=== PATIENT | male | born 1955 | race Caucasian/White ===

== ENCOUNTER → 2017-11-14 | Outpatient (CLI) | payer OTHER ==
[~2017-11-14] MED LIST: ADVAIR DISKUS 21 DSK IH; ALBUTEROL0.09 MG/A2 IH; VICODIN 500 MG-1 TAB PO
== END | disposition home or self-care (01) ==
LOC: RAD 15:19
DX: J44.9 Chronic obstructive pulmonary disease, unspecified (principal); M54.89 Other dorsalgia

== ENCOUNTER → 2017-11-16 | Outpatient (CLI) | payer OTHER | END | disposition home or self-care (01) | LOC: CT 13:40 | DX: I71.4 Abdominal aortic aneurysm, without rupture (principal); R07.81 Pleurodynia ==

== ENCOUNTER → 2020-04-10 | Outpatient (CLI) | payer OTHER ==
[2020-04-10 08:42] LABS: BASO % 0.2 % (0.0-1.0); EOS # 0.1 10*3/uL (0.0-0.4); EOS % 2.7 % (1.0-4.0); HEMATOCRIT 45.8 % (42.0-52.0); LYMPH # 1.4 10*3/uL (1.3-4.4); LYMPH % 27.6 % (27.0-41.0); MEAN CELL VOLUME 95.4 fl (80.0-94.0); MEAN CORPUSCULAR HGB 30.6 pg (27.0-31.0); MEAN CORPUSCULAR HGB CONC 32.1 g/dl (33.0-37.0); MEAN PLATELET VOLUME 9.7 fl (9.6-12.3); MONO # 0.5 10*3/uL (0.1-1.0); MONO % 9.1 % (3.0-9.0); NEUT # 3.1 10*3/uL (2.3-7.9); NEUT % 60.2 % (47.0-73.0); PLATELET COUNT AUTOMATED 170 10*3/uL (130-400); RED CELL DISTRI WIDTH 12.9 % (0-14.5); WHITE BLOOD COUNT 5.2 10*3/uL (4.8-10.8)
[2020-04-10 09:32] LABS: ALBUMIN 3.8 gm/dl (3.1-4.5); BUN 23 mg/dl (7-24); CHLORIDE 109 mmol/L (98-107); CHOLESTEROL 157 mg/dL (<200); CREATININE 0.96 mg/dL (0.70-1.30); POTASSIUM 4.1 mmol/L (3.5-5.1); SGOT/AST 22 IU/L (3-35); SGPT/ALT 49 U/L (12-78); SODIUM 143 mmol/L (136-145); TRIGLYCERIDES 79 mg/dl (<150); VLDL CHOLESTEROL 16 mg/dL (6-40)
[2020-04-10 09:42] LABS: ALKALINE PHOSPHATASE 57 U/L (45-117); HDL CHOLESTEROL 38 mg/dl (40-60); LDL CHOLESTEROL 103 mg/dL (9-159); TOTAL PROTEIN 7.4 gm/dL (6.4-8.2)
== END | disposition home or self-care (01) ==
LOC: LAB 08:18
PROVIDERS: ATTEND Nurse Practitioner
DX: Z00.00 Encounter for general adult medical examination without abnormal findings (principal)

== ENCOUNTER 2020-06-06 15:57 | Emergency (ER) | payer OTHER ==
[~2020-06-06] VITALS: Ht 182.8 cm; Wt 86.2 kg
[2020-06-06 16:29] LABS: BILIRUBIN Negative (Negative); BLOOD Negative (Negative); COLOR Yellow (Yellow); GLUCOSE Negative (Negative); KETONE Negative (Negative); LEUKO ESTERASE Negative (Negative); NITRITE Negative (Negative); PH 5.5 (4.5-8.0)
[2020-06-06 16:33] LABS: CLARITY Clear (Clear)
[2020-06-06 16:38] LABS: URINE AMPHETAMINES < 1000 (1000ng/ml); URINE BARBITURATES < 200 (200ng/ml); URINE BENZODIAZEPINES < 200 (200ng/ml); URINE CANNABINOIDS (THC) < 50 (50ng/ml); URINE COCAINE < 300 (300ng/ml); URINE METHADONE < 300 (300ng/ml); URINE OPIATES < 300 (300ng/ml)
[2020-06-06 16:40] LABS: BASO % 0.2 % (0.0-1.0); EOS # 0.1 10*3/uL (0.0-0.4); EOS % 0.5 % (1.0-4.0); HEMATOCRIT 46.7 % (42.0-52.0); LYMPH # 0.9 10*3/uL (1.3-4.4); LYMPH % 8.1 % (27.0-41.0); MEAN CELL VOLUME 92.5 fl (80.0-94.0); MEAN CORPUSCULAR HGB 30.9 pg (27.0-31.0); MEAN CORPUSCULAR HGB CONC 33.4 g/dl (33.0-37.0); MEAN PLATELET VOLUME 9.3 fl (9.6-12.3); MONO # 0.7 10*3/uL (0.1-1.0); MONO % 6.7 % (3.0-9.0); NEUT # 9.2 10*3/uL (2.3-7.9); NEUT % 84.3 % (47.0-73.0); PLATELET COUNT AUTOMATED 201 10*3/uL (130-400); RED BLOOD COUNT 5.05 10*6/uL (4.50-5.90); RED CELL DISTRI WIDTH 13.1 % (0-14.5); WHITE BLOOD COUNT 10.9 10*3/uL (4.8-10.8)
[2020-06-06 16:44] LABS: URINE PHENCYCLIDINE < 25 (25ng/ml)
[2020-06-06 16:49] LABS: BACTERIA TRACE; EPITHELIAL CELLS 0-2; RBC 0-2 rbc/hpf (0-2); WBC 0-2 wbc/hpf (0-5)
[2020-06-06 16:56] LABS: ALBUMIN 3.8 gm/dl (3.1-4.5); ALKALINE PHOSPHATASE 62 U/L (45-117); BUN 17 mg/dl (7-24); CHLORIDE 109 mmol/L (98-107); CREATININE 1.06 mg/dL (0.70-1.30); POTASSIUM 3.8 mmol/L (3.5-5.1); SGOT/AST 20 IU/L (3-35); SGPT/ALT 39 U/L (12-78); SODIUM 142 mmol/L (136-145); TOTAL PROTEIN 7.2 gm/dL (6.4-8.2)
[2020-06-06 17:06] LABS: ETHYL ALCOHOL < 3.0 mg/dl (<3)
== END 2020-06-06 19:08 | disposition home or self-care (01) ==
LOC: ED 15:57
PROVIDERS: Emergency Medicine
DX: F19.90 Other psychoactive substance use, unspecified, uncomplicated (principal); T43.205A Adverse effect of unspecified antidepressants, initial encounter; Y92.89 Other specified places as the place of occurrence of the external cause

== ENCOUNTER 2020-06-08 14:14 | Inpatient (IN) | payer OTHER ==
[~2020-06-08] VITALS: Ht 180.3 cm; Wt 117.9 kg
[2020-06-08 14:21] VITALS: BP 175/80
[2020-06-08 14:42] LABS: BASO % 0.1 % (0.0-1.0); EOS # 0.1 10*3/uL (0.0-0.4); EOS % 0.6 % (1.0-4.0); LYMPH # 1.5 10*3/uL (1.3-4.4); LYMPH % 17.9 % (27.0-41.0); MEAN CELL VOLUME 91.3 fl (80.0-94.0); MEAN CORPUSCULAR HGB 30.5 pg (27.0-31.0); MEAN CORPUSCULAR HGB CONC 33.4 g/dl (33.0-37.0); MEAN PLATELET VOLUME 9.1 fl (9.6-12.3); MONO # 0.6 10*3/uL (0.1-1.0); MONO % 7.4 % (3.0-9.0); NEUT % 73.6 % (47.0-73.0); PLATELET COUNT AUTOMATED 193 10*3/uL (130-400); RED BLOOD COUNT 5.15 10*6/uL (4.50-5.90); RED CELL DISTRI WIDTH 12.7 % (0-14.5); WHITE BLOOD COUNT 8.2 10*3/uL (4.8-10.8)
[2020-06-08 14:58] LABS: ALBUMIN 3.8 gm/dl (3.1-4.5); ALKALINE PHOSPHATASE 55 U/L (45-117); BUN 11 mg/dl (7-24); CHLORIDE 109 mmol/L (98-107); CPK 111 U/L (39-308); CREATININE 0.85 mg/dL (0.70-1.30); ETHYL ALCOHOL < 3.0 mg/dl (<3); SGOT/AST 20 IU/L (3-35); SGPT/ALT 36 U/L (12-78); SODIUM 140 mmol/L (136-145); TOTAL PROTEIN 7.6 gm/dL (6.4-8.2)
[2020-06-08 15:08] LABS: ACT PARTIAL THROMBO TIME 27.6 SECONDS (20.0-32.1)
[2020-06-08 15:22] LABS: TROPONIN I < 0.015 ng/ml (<0.045)
[2020-06-08 15:42] LABS: BILIRUBIN Negative (Negative); BLOOD Negative (Negative); CLARITY Clear (Clear); COLOR Yellow (Yellow); GLUCOSE Negative (Negative); KETONE Negative (Negative); LEUKO ESTERASE Negative (Negative); NITRITE Negative (Negative); PH 5.5 (4.5-8.0); UROBILINOGEN 0.2 E.U./dl (0.0-1.0)
[2020-06-08 15:52] LABS: URINE AMPHETAMINES < 1000 (1000ng/ml); URINE BARBITURATES < 200 (200ng/ml); URINE BENZODIAZEPINES < 200 (200ng/ml); URINE CANNABINOIDS (THC) < 50 (50ng/ml); URINE COCAINE < 300 (300ng/ml); URINE METHADONE < 300 (300ng/ml); URINE OPIATES < 300 (300ng/ml)
[2020-06-08 15:59] LABS: URINE PHENCYCLIDINE < 25 (25ng/ml)
[2020-06-08 16:03] LABS: WBC 0-2 wbc/hpf (0-5)
[2020-06-08] MEDS ORDERED: METHOCARBAMOL500 M1 PO (18:18)
[2020-06-08] MEDS ORDERED: SERTRALINE HYDR50 MG PO (18:18)
[2020-06-08] MEDS ORDERED: GOOD SENSE ALLE10 M2 PO (18:19)
[2020-06-08] MEDS ORDERED: METHYLPRED-DP4 MG PO (18:19)
[2020-06-08 18:21] VITALS: BP 121/82
[2020-06-08 19:01] VITALS: BP 141/90
[2020-06-08] MEDS ORDERED: Meclizine25 MG PO (19:15)
[2020-06-08 19:16] VITALS: BP 141/90
[2020-06-08] MEDS ORDERED: SYMB80 INH (19:16)
[2020-06-08 20:00] VITALS: BP 141/90
[2020-06-09 06:32] LABS: BASO % 0.2 % (0.0-1.0); EOS # 0.1 10*3/uL (0.0-0.4); EOS % 0.8 % (1.0-4.0); HEMATOCRIT 45.3 % (42.0-52.0); LYMPH # 1.7 10*3/uL (1.3-4.4); LYMPH % 25.3 % (27.0-41.0); MEAN CELL VOLUME 94.2 fl (80.0-94.0); MEAN CORPUSCULAR HGB CONC 32.9 g/dl (33.0-37.0); MEAN PLATELET VOLUME 9.7 fl (9.6-12.3); MONO # 0.5 10*3/uL (0.1-1.0); MONO % 6.8 % (3.0-9.0); NEUT # 4.4 10*3/uL (2.3-7.9); NEUT % 66.6 % (47.0-73.0); PLATELET COUNT AUTOMATED 162 10*3/uL (130-400); RED BLOOD COUNT 4.81 10*6/uL (4.50-5.90); RED CELL DISTRI WIDTH 13.2 % (0-14.5); WHITE BLOOD COUNT 6.6 10*3/uL (4.8-10.8)
[2020-06-09 06:46] LABS: ALBUMIN 3.4 gm/dl (3.1-4.5); BUN 12 mg/dl (7-24); CHLORIDE 110 mmol/L (98-107); POTASSIUM 4.3 mmol/L (3.5-5.1); SODIUM 142 mmol/L (136-145)
[2020-06-09 06:58] LABS: ALKALINE PHOSPHATASE 47 U/L (45-117); CHOLESTEROL 156 mg/dL (<200); CREATININE 0.91 mg/dL (0.70-1.30); HDL CHOLESTEROL 46 mg/dl (40-60); LDL CHOLESTEROL 97 mg/dL (9-159); SGOT/AST 15 IU/L (3-35); SGPT/ALT 31 U/L (12-78); TRIGLYCERIDES 63 mg/dl (<150); VLDL CHOLESTEROL 13 mg/dL (6-40)
[2020-06-09 07:46] VITALS: BP 131/77
[2020-06-09 08:39] LABS: VITAMIN D, 25-HYDROXY 43.5 ng/mL (30-100)
[2020-06-09 19:37] VITALS: BP 149/83
[2020-06-10 08:00] VITALS: BP 143/84
[2020-06-10 19:31] VITALS: BP 126/66
[2020-06-11 07:42] VITALS: BP 141/82
[2020-06-11 19:05] VITALS: BP 151/68
[2020-06-12 07:28] VITALS: BP 128/73
[2020-06-12 19:55] VITALS: BP 123/72
[2020-06-13 07:58] VITALS: BP 113/73
[2020-06-13 19:53] VITALS: BP 147/82
[2020-06-14 06:54] LABS: BASO % 0.2 % (0.0-1.0); EOS # 0.2 10*3/uL (0.0-0.4); EOS % 3.9 % (1.0-4.0); HEMATOCRIT 43.1 % (42.0-52.0); LYMPH # 1.2 10*3/uL (1.3-4.4); LYMPH % 25.3 % (27.0-41.0); MEAN CORPUSCULAR HGB 30.5 pg (27.0-31.0); MEAN CORPUSCULAR HGB CONC 31.8 g/dl (33.0-37.0); MEAN PLATELET VOLUME 9.9 fl (9.6-12.3); MONO # 0.5 10*3/uL (0.1-1.0); MONO % 9.3 % (3.0-9.0); NEUT # 2.9 10*3/uL (2.3-7.9); NEUT % 60.9 % (47.0-73.0); PLATELET COUNT AUTOMATED 127 10*3/uL (130-400); RED BLOOD COUNT 4.49 10*6/uL (4.50-5.90); RED CELL DISTRI WIDTH 13.2 % (0-14.5); WHITE BLOOD COUNT 4.8 10*3/uL (4.8-10.8)
[2020-06-14 07:21] LABS: ALBUMIN 3.2 gm/dl (3.1-4.5); ALKALINE PHOSPHATASE 42 U/L (45-117); BUN 14 mg/dl (7-24); CHLORIDE 112 mmol/L (98-107); CREATININE 0.87 mg/dL (0.70-1.30); POTASSIUM 4.4 mmol/L (3.5-5.1); SGOT/AST 15 IU/L (3-35); SGPT/ALT 38 U/L (12-78); SODIUM 144 mmol/L (136-145); TOTAL PROTEIN 6.4 gm/dL (6.4-8.2)
[2020-06-14 07:36] VITALS: BP 127/73
[2020-06-14 19:46] VITALS: BP 138/78
[2020-06-15 07:25] VITALS: BP 134/88
[2020-06-15] MEDS ORDERED: RISPERIDONE M-TA1 MG BC ×2 (10:01)
[2020-06-15] MEDS ORDERED: DIVALPROEX SOD500 MG PO (10:01)
[2020-06-15] MEDS ORDERED: LACTULOSE20 GM/30 M PO ×2 (10:01→11:37)
== END 2020-06-15 13:00 | disposition home or self-care (01) | DRG 885 ==
LOC: ED 14:14 → 3N 18:28
PROVIDERS: Emergency Medicine; Family Medicine; ADMIT Psychiatry & Neurology Psychiatry; ATTEND Psychiatry & Neurology Psychiatry
PROC: 0HBRXZZ Excision of Toe Nail, External Approach (ICD-10-PCS; principal; 2020-06-09)
PROC: 0HBRXZZ Excision of Toe Nail, External Approach (ICD-10-PCS; 2020-06-09)
PROC: 0HBRXZZ Excision of Toe Nail, External Approach (ICD-10-PCS; 2020-06-09)
PROC: 0HBRXZZ Excision of Toe Nail, External Approach (ICD-10-PCS; 2020-06-09)
PROC: 0HBRXZZ Excision of Toe Nail, External Approach (ICD-10-PCS; 2020-06-09)
PROC: 0HBRXZZ Excision of Toe Nail, External Approach (ICD-10-PCS; 2020-06-09)
PROC: 0HBRXZZ Excision of Toe Nail, External Approach (ICD-10-PCS; 2020-06-09)
PROC: 0HBRXZZ Excision of Toe Nail, External Approach (ICD-10-PCS; 2020-06-09)
PROC: 0HBRXZZ Excision of Toe Nail, External Approach (ICD-10-PCS; 2020-06-09)
PROC: 0HBRXZZ Excision of Toe Nail, External Approach (ICD-10-PCS; 2020-06-09)
DX: F23 Brief psychotic disorder (principal); F31.2 Bipolar disorder, current episode manic severe with psychotic features; E87.8 Other disorders of electrolyte and fluid balance, not elsewhere classified; R73.9 Hyperglycemia, unspecified; B35.1 Tinea unguium; Z20.828 Contact with and (suspected) exposure to other viral communicable diseases; Z68.36 Body mass index [BMI] 36.0-36.9, adult; E66.9 Obesity, unspecified

== ENCOUNTER → 2020-07-21 | Outpatient (CLI) | payer OTHER ==
[~2020-07-21] MED LIST changes: +DIVALPROEX SOD500 MG PO; +GOOD SENSE ALLE10 M2 PO; +LACTULOSE20 GM/30 M PO; +METHOCARBAMOL500 M1 PO; +METHYLPRED-DP4 MG PO; +Meclizine25 MG PO; +RISPERIDONE M-TA1 MG BC; +SERTRALINE HYDR50 MG PO; +SYMB80 INH
== END | disposition home or self-care (01) ==
LOC: LAB 14:53
PROVIDERS: ATTEND Physician Assistant
DX: Z51.81 Encounter for therapeutic drug level monitoring (principal); Z79.899 Other long term (current) drug therapy

== ENCOUNTER 2020-11-26 13:25 | Emergency (ER) | payer OTHER ==
[~2020-11-26] VITALS: Ht 180.3 cm; Wt 117.9 kg
[2020-11-26 13:51] LABS: BASO % 0.3 % (0.0-1.0); EOS # 0.3 10*3/uL (0.0-0.4); EOS % 4.2 % (1.0-4.0); HEMATOCRIT 43.7 % (42.0-52.0); LYMPH # 1.9 10*3/uL (1.3-4.4); LYMPH % 29.2 % (27.0-41.0); MEAN CELL VOLUME 91.2 fl (80.0-94.0); MEAN CORPUSCULAR HGB 30.5 pg (27.0-31.0); MEAN CORPUSCULAR HGB CONC 33.4 g/dl (33.0-37.0); MEAN PLATELET VOLUME 9.6 fl (9.6-12.3); MONO # 0.5 10*3/uL (0.1-1.0); MONO % 7.9 % (3.0-9.0); NEUT # 3.7 10*3/uL (2.3-7.9); NEUT % 58.1 % (47.0-73.0); PLATELET COUNT AUTOMATED 189 10*3/uL (130-400); RED BLOOD COUNT 4.79 10*6/uL (4.50-5.90); RED CELL DISTRI WIDTH 12.5 % (0-14.5); WHITE BLOOD COUNT 6.4 10*3/uL (4.8-10.8)
[2020-11-26 14:01] LABS: ACT PARTIAL THROMBO TIME 26.1 SECONDS (20.0-32.1)
[2020-11-26 14:10] LABS: ALBUMIN 3.5 gm/dl (3.1-4.5); ALKALINE PHOSPHATASE 72 U/L (45-117); BUN 18 mg/dl (7-24); CHLORIDE 104 mmol/L (98-107); CREATININE 1.42 mg/dL (0.70-1.30); POTASSIUM 3.8 mmol/L (3.5-5.1); SGOT/AST 26 IU/L (3-35); SGPT/ALT 59 U/L (12-78); SODIUM 137 mmol/L (136-145)
[2020-11-26 14:13] LABS: TROPONIN I < 0.015 ng/ml (<0.045)
== END 2020-11-26 14:49 | disposition left against medical advice (07) ==
LOC: ED 13:25
PROVIDERS: Emergency Medicine
DX: R07.9 Chest pain, unspecified (principal); Z79.899 Other long term (current) drug therapy; Z98.890 Other specified postprocedural states

== ENCOUNTER 2021-06-17 09:40 | Emergency (ER) | payer OTHER ==
[~2021-06-17] VITALS: Wt 131.5 kg
[2021-06-17 10:36] LABS: BASO % 0.4 % (0.0-1.0); EOS # 0.1 10*3/uL (0.0-0.4); EOS % 2.3 % (1.0-4.0); HEMATOCRIT 42.4 % (42.0-52.0); LYMPH # 1.3 10*3/uL (1.3-4.4); LYMPH % 24.5 % (27.0-41.0); MEAN CELL VOLUME 93.6 fl (80.0-94.0); MEAN CORPUSCULAR HGB 31.6 pg (27.0-31.0); MEAN CORPUSCULAR HGB CONC 33.7 g/dl (33.0-37.0); MEAN PLATELET VOLUME 9.6 fl (9.6-12.3); MONO # 0.4 10*3/uL (0.1-1.0); MONO % 7.4 % (3.0-9.0); NEUT # 3.4 10*3/uL (2.3-7.9); NEUT % 64.8 % (47.0-73.0); PLATELET COUNT AUTOMATED 151 10*3/uL (130-400); RED BLOOD COUNT 4.53 10*6/uL (4.50-5.90); RED CELL DISTRI WIDTH 13.2 % (0-14.5); WHITE BLOOD COUNT 5.3 10*3/uL (4.8-10.8)
[2021-06-17 10:48] LABS: ACT PARTIAL THROMBO TIME 26.5 SECONDS (20.0-32.1)
[2021-06-17 10:53] LABS: ALBUMIN 3.2 gm/dl (3.1-4.5); ALKALINE PHOSPHATASE 70 U/L (45-117); BUN 19 mg/dl (7-24); CHLORIDE 108 mmol/L (98-107); CREATININE 0.92 mg/dL (0.70-1.30); SGOT/AST 27 IU/L (3-35); SGPT/ALT 64 U/L (12-78); SODIUM 140 mmol/L (136-145); TOTAL PROTEIN 6.6 gm/dL (6.4-8.2)
[2021-06-17 10:59] LABS: TROPONIN I < 0.015 ng/ml (<0.045)
== END 2021-06-17 14:40 | disposition home or self-care (01) ==
LOC: ED 09:40
PROVIDERS: Internal Medicine
DX: F41.9 Anxiety disorder, unspecified (principal); Z79.899 Other long term (current) drug therapy

== ENCOUNTER 2021-07-29 01:32 | Emergency (ER) | payer OTHER | END 2021-07-29 02:29 | disposition left against medical advice (07) | LOC: ED 01:32 | DX: F41.9 Anxiety disorder, unspecified (principal); Z53.21 Procedure and treatment not carried out due to patient leaving prior to being seen by health care provider ==

== ENCOUNTER 2021-07-29 11:52 | Inpatient (IN) | payer OTHER ==
[~2021-07-29] VITALS: Ht 175.2 cm; Wt 136.2 kg
[2021-07-29 13:11] VITALS: BP 167/98
[2021-07-29 20:00] VITALS: BP 149/88
[2021-07-29 21:49] LABS: BILIRUBIN Negative (Negative); BLOOD Negative (Negative); CLARITY Clear (Clear); COLOR Yellow (Yellow); GLUCOSE Negative (Negative); KETONE Negative (Negative); LEUKO ESTERASE Negative (Negative); NITRITE Negative (Negative)
[2021-07-29 21:59] LABS: EPITHELIAL CELLS 0-2; WBC 0-2 wbc/hpf (0-5)
[2021-07-30 07:44] VITALS: BP 146/82
[2021-07-30 07:50] LABS: BASO % 0.3 % (0.0-1.0); EOS # 0.2 10*3/uL (0.0-0.4); EOS % 3.5 % (1.0-4.0); HEMATOCRIT 43.4 % (42.0-52.0); LYMPH # 1.6 10*3/uL (1.3-4.4); LYMPH % 25.3 % (27.0-41.0); MEAN CELL VOLUME 95.4 fl (80.0-94.0); MEAN CORPUSCULAR HGB 31.4 pg (27.0-31.0); MEAN CORPUSCULAR HGB CONC 32.9 g/dl (33.0-37.0); MEAN PLATELET VOLUME 9.9 fl (9.6-12.3); MONO # 0.6 10*3/uL (0.1-1.0); MONO % 10.3 % (3.0-9.0); NEUT # 3.7 10*3/uL (2.3-7.9); NEUT % 60.3 % (47.0-73.0); PLATELET COUNT AUTOMATED 189 10*3/uL (130-400); RED BLOOD COUNT 4.55 10*6/uL (4.50-5.90); RED CELL DISTRI WIDTH 13.3 % (0-14.5); WHITE BLOOD COUNT 6.2 10*3/uL (4.8-10.8)
[2021-07-30 08:06] LABS: ALBUMIN 3.4 gm/dl (3.1-4.5); ALKALINE PHOSPHATASE 56 U/L (45-117); BUN 15 mg/dl (7-24); CHLORIDE 106 mmol/L (98-107); CREATININE 0.92 mg/dL (0.70-1.30); POTASSIUM 4.2 mmol/L (3.5-5.1); SGOT/AST 27 IU/L (3-35); SGPT/ALT 60 U/L (12-78); SODIUM 139 mmol/L (136-145); TOTAL PROTEIN 6.9 gm/dL (6.4-8.2)
[2021-07-30 10:50] LABS: VITAMIN D, 25-HYDROXY 17.9 ng/mL (30-100)
[2021-07-30 20:00] VITALS: BP 134/56
[2021-07-31] MEDS ORDERED: TOBRADEX 0.3-03.5 GM OPH (04:31)
[2021-07-31 07:25] VITALS: BP 136/80
[2021-07-31 20:00] VITALS: BP 149/77
[2021-08-01 07:37] VITALS: BP 154/85
[2021-08-01 20:00] VITALS: BP 152/82
[2021-08-02 08:11] VITALS: BP 172/73
[2021-08-02] MEDS ORDERED: DIVALPROEX SOD500 MG PO (10:14)
[2021-08-02] MEDS ORDERED: PALIPERIDONE ER3 MG PO (10:14)
[2021-08-02] MEDS ORDERED: VITAMIN D3125 MC1 PO (10:14)
[2021-08-02] MEDS ORDERED: LISINOPRIL10 M1 PO (10:48)
== END 2021-08-02 11:47 | disposition home or self-care (01) | DRG 885 ==
LOC: 3N 11:52
PROVIDERS: ADMIT Psychiatry & Neurology Psychiatry; ATTEND Psychiatry & Neurology Psychiatry
DX: F31.2 Bipolar disorder, current episode manic severe with psychotic features (principal); Z68.41 Body mass index [BMI] 40.0-44.9, adult; F23 Brief psychotic disorder; J45.909 Unspecified asthma, uncomplicated; J44.9 Chronic obstructive pulmonary disease, unspecified; Z20.822 Contact with and (suspected) exposure to COVID-19; I10 Essential (primary) hypertension; E66.9 Obesity, unspecified; F41.9 Anxiety disorder, unspecified; H10.9 Unspecified conjunctivitis

== ENCOUNTER 2021-11-08 09:06 | Emergency (ER) | payer OTHER ==
[~2021-11-08] VITALS: Ht 180.3 cm; Wt 136.1 kg
[~2021-11-08 09:06] MED LIST changes: +LISINOPRIL10 M1 PO; +PALIPERIDONE ER3 MG PO; +TOBRADEX 0.3-03.5 GM OPH; +VITAMIN D3125 MC1 PO
[2021-11-08] MEDS ORDERED: LISINOPRIL20 MG PO (09:24)
[2021-11-08] MEDS ORDERED: DEPAKOTE500 MG PO (10:41)
== END 2021-11-08 12:10 | disposition home or self-care (01) ==
LOC: ED 09:06
DX: M54.2 Cervicalgia (principal); Z79.899 Other long term (current) drug therapy; Z98.890 Other specified postprocedural states; W01.198A Fall on same level from slipping, tripping and stumbling with subsequent striking against other object, initial encounter; Y93.89 Activity, other specified; Y92.89 Other specified places as the place of occurrence of the external cause; Y99.8 Other external cause status

== ENCOUNTER → 2021-11-16 | Outpatient (CLI) | payer OTHER ==
[~2021-11-16] MED LIST changes: +DEPAKOTE500 MG PO; +LISINOPRIL20 MG PO
== END | disposition home or self-care (01) ==
LOC: RESCLI 00:33
PROVIDERS: ATTEND Internal Medicine
DX: F31.9 Bipolar disorder, unspecified (principal); J44.9 Chronic obstructive pulmonary disease, unspecified; I10 Essential (primary) hypertension; E55.9 Vitamin D deficiency, unspecified; Z12.11 Encounter for screening for malignant neoplasm of colon; Z79.899 Other long term (current) drug therapy

== ENCOUNTER → 2021-12-21 | Outpatient (CLI) | payer OTHER | END | disposition home or self-care (01) | LOC: RESCLI 00:16 | PROVIDERS: ATTEND Internal Medicine | DX: G25.2 Other specified forms of tremor (principal); E55.9 Vitamin D deficiency, unspecified; I10 Essential (primary) hypertension; J44.9 Chronic obstructive pulmonary disease, unspecified; Z79.899 Other long term (current) drug therapy ==

== ENCOUNTER → 2022-01-18 | Outpatient (CLI) | payer OTHER | END | disposition home or self-care (01) | LOC: RESCLI 01-17 04:57 | PROVIDERS: ATTEND Internal Medicine | DX: G25.0 Essential tremor (principal); E55.9 Vitamin D deficiency, unspecified; J44.9 Chronic obstructive pulmonary disease, unspecified; F31.9 Bipolar disorder, unspecified; I10 Essential (primary) hypertension; Z79.899 Other long term (current) drug therapy ==

== ENCOUNTER → 2022-02-01 | Outpatient (CLI) | payer OTHER | END | disposition home or self-care (01) | LOC: RESCLI 01:23 | PROVIDERS: ATTEND Internal Medicine | DX: F31.9 Bipolar disorder, unspecified (principal); J44.9 Chronic obstructive pulmonary disease, unspecified; I10 Essential (primary) hypertension; E55.9 Vitamin D deficiency, unspecified; G25.0 Essential tremor; Z79.899 Other long term (current) drug therapy ==

== ENCOUNTER → 2022-03-14 | Outpatient (CLI) | payer OTHER | END | disposition home or self-care (01) | LOC: RESCLI 03:28 | PROVIDERS: ATTEND Internal Medicine | DX: F31.9 Bipolar disorder, unspecified (principal); J44.9 Chronic obstructive pulmonary disease, unspecified; I10 Essential (primary) hypertension; E55.9 Vitamin D deficiency, unspecified; G25.0 Essential tremor; M47.817 Spondylosis without myelopathy or radiculopathy, lumbosacral region; N40.0 Benign prostatic hyperplasia without lower urinary tract symptoms; M54.9 Dorsalgia, unspecified; M25.551 Pain in right hip; Z12.11 Encounter for screening for malignant neoplasm of colon; Z79.899 Other long term (current) drug therapy; Z12.5 Encounter for screening for malignant neoplasm of prostate ==

== ENCOUNTER → 2022-06-20 | Outpatient (CLI) | payer OTHER | END | disposition home or self-care (01) | LOC: RESCLI 03:55 | PROVIDERS: ATTEND Internal Medicine | DX: J44.9 Chronic obstructive pulmonary disease, unspecified (principal); I10 Essential (primary) hypertension; N40.0 Benign prostatic hyperplasia without lower urinary tract symptoms; F31.9 Bipolar disorder, unspecified; G25.2 Other specified forms of tremor; E55.9 Vitamin D deficiency, unspecified; Z98.890 Other specified postprocedural states; Z72.89 Other problems related to lifestyle; Z79.899 Other long term (current) drug therapy ==

== ENCOUNTER → 2022-07-15 | Outpatient (CLI) | payer OTHER ==
[2022-07-15 08:13] LABS: BASO % 0.3 % (0.0-1.0); EOS # 0.2 10*3/uL (0.0-0.4); EOS % 3.8 % (1.0-4.0); HEMATOCRIT 45.2 % (42.0-52.0); LYMPH # 1.5 10*3/uL (1.3-4.4); MEAN CELL VOLUME 94.4 fl (80.0-94.0); MEAN CORPUSCULAR HGB 31.1 pg (27.0-31.0); MEAN PLATELET VOLUME 9.5 fl (9.6-12.3); MONO # 0.5 10*3/uL (0.1-1.0); MONO % 8.3 % (3.0-9.0); NEUT # 3.6 10*3/uL (2.3-7.9); NEUT % 62.3 % (47.0-73.0); PLATELET COUNT AUTOMATED 175 10*3/uL (130-400); RED BLOOD COUNT 4.79 10*6/uL (4.50-5.90); RED CELL DISTRI WIDTH 12.9 % (0-14.5); WHITE BLOOD COUNT 5.8 10*3/uL (4.8-10.8)
[2022-07-15 10:07] LABS: ALKALINE PHOSPHATASE 70 U/L (46-116); BUN 14 mg/dl (9-23); CHLORIDE 101 mmol/L (98-107); CREATININE 0.91 mg/dL (0.70-1.30); POTASSIUM 4.4 mmol/L (3.4-5.1); SGPT/ALT 74 U/L (10-49); SODIUM 137 mmol/L (136-145); TRIGLYCERIDES 93 mg/dl (<150)
[2022-07-15 10:08] LABS: CHOLESTEROL 186 mg/dL (<200); LDL CHOLESTEROL 126 mg/dL (9-159); TOTAL PROTEIN 6.9 gm/dL (6.0-8.0)
== END | disposition home or self-care (01) ==
LOC: LAB 07:52 → COVID19 09:00
PROVIDERS: Student in an Organized Health Care Education/Training Program; ATTEND Internal Medicine Gastroenterology
DX: E55.9 Vitamin D deficiency, unspecified (principal); Z00.00 Encounter for general adult medical examination without abnormal findings; Z79.899 Other long term (current) drug therapy; Z20.822 Contact with and (suspected) exposure to COVID-19

== ENCOUNTER → 2022-07-19 | Outpatient (CLI) | payer OTHER | END | disposition home or self-care (01) | LOC: RESCLI 03:37 | PROVIDERS: ATTEND Internal Medicine | DX: I10 Essential (primary) hypertension (principal); J44.9 Chronic obstructive pulmonary disease, unspecified; E55.9 Vitamin D deficiency, unspecified; N40.0 Benign prostatic hyperplasia without lower urinary tract symptoms; M54.9 Dorsalgia, unspecified; M25.551 Pain in right hip; J45.909 Unspecified asthma, uncomplicated; E66.9 Obesity, unspecified; G25.0 Essential tremor; Z12.31 Encounter for screening mammogram for malignant neoplasm of breast; Z98.890 Other specified postprocedural states; Z87.891 Personal history of nicotine dependence; Z72.89 Other problems related to lifestyle; Z79.899 Other long term (current) drug therapy ==

== ENCOUNTER → 2022-10-17 | Outpatient (CLI) | payer OTHER | END | disposition home or self-care (01) | LOC: RESCLI 02:21 | PROVIDERS: ATTEND Internal Medicine | DX: J44.9 Chronic obstructive pulmonary disease, unspecified (principal); N40.0 Benign prostatic hyperplasia without lower urinary tract symptoms; K21.9 Gastro-esophageal reflux disease without esophagitis; F10.90 Alcohol use, unspecified, uncomplicated; E55.9 Vitamin D deficiency, unspecified; I10 Essential (primary) hypertension; M54.9 Dorsalgia, unspecified; Z98.890 Other specified postprocedural states; Z79.899 Other long term (current) drug therapy ==

== ENCOUNTER → 2023-03-23 | Outpatient (CLI) | payer OTHER | END | disposition home or self-care (01) | LOC: RESCLI 08:40 | PROVIDERS: ATTEND Internal Medicine | DX: E55.9 Vitamin D deficiency, unspecified (principal); K21.9 Gastro-esophageal reflux disease without esophagitis; J44.9 Chronic obstructive pulmonary disease, unspecified; N40.0 Benign prostatic hyperplasia without lower urinary tract symptoms; I10 Essential (primary) hypertension; R55 Syncope and collapse; I87.2 Venous insufficiency (chronic) (peripheral); K42.9 Umbilical hernia without obstruction or gangrene; F31.9 Bipolar disorder, unspecified; R73.09 Other abnormal glucose; Z98.890 Other specified postprocedural states; Z79.899 Other long term (current) drug therapy ==

== ENCOUNTER → 2023-03-28 | Outpatient (CLI) | payer MEDICARE ==
[2023-03-28 09:45] LABS: BASO % 0.2 % (0.0-1.0); EOS # 0.2 10*3/uL (0.0-0.4); HEMATOCRIT 47.7 % (42.0-52.0); LYMPH # 1.2 10*3/uL (1.3-4.4); LYMPH % 23.6 % (27.0-41.0); MEAN CELL VOLUME 94.5 fl (80.0-94.0); MEAN CORPUSCULAR HGB 30.9 pg (27.0-31.0); MEAN CORPUSCULAR HGB CONC 32.7 g/dl (33.0-37.0); MEAN PLATELET VOLUME 9.4 fl (9.6-12.3); MONO # 0.3 10*3/uL (0.1-1.0); MONO % 6.9 % (3.0-9.0); NEUT # 3.3 10*3/uL (2.3-7.9); NEUT % 65.9 % (47.0-73.0); PLATELET COUNT AUTOMATED 151 10*3/uL (130-400); RED BLOOD COUNT 5.05 10*6/uL (4.50-5.90); RED CELL DISTRI WIDTH 13.2 % (0-14.5)
[2023-03-28 10:11] LABS: ALKALINE PHOSPHATASE 71 U/L (46-116); BUN 7 mg/dl (9-23); CHLORIDE 103 mmol/L (98-107); POTASSIUM 4.3 mmol/L (3.4-5.1); SGPT/ALT 50 U/L (10-49); TOTAL PROTEIN 7.3 gm/dL (6.0-8.0)
== END | disposition home or self-care (01) ==
LOC: LAB 09:27
PROVIDERS: ATTEND Student in an Organized Health Care Education/Training Program
DX: I10 Essential (primary) hypertension (principal); R73.09 Other abnormal glucose; Z79.899 Other long term (current) drug therapy

== ENCOUNTER → 2023-04-20 | Outpatient (CLI) | payer MEDICARE | END | disposition home or self-care (01) | LOC: RESCLI 08:56 | PROVIDERS: ATTEND Student in an Organized Health Care Education/Training Program | DX: K21.9 Gastro-esophageal reflux disease without esophagitis (principal); E55.9 Vitamin D deficiency, unspecified; M54.9 Dorsalgia, unspecified; J44.9 Chronic obstructive pulmonary disease, unspecified; N40.0 Benign prostatic hyperplasia without lower urinary tract symptoms; I10 Essential (primary) hypertension; R73.09 Other abnormal glucose; I87.2 Venous insufficiency (chronic) (peripheral); K42.9 Umbilical hernia without obstruction or gangrene; F31.9 Bipolar disorder, unspecified; B02.9 Zoster without complications; Z98.890 Other specified postprocedural states; Z79.899 Other long term (current) drug therapy ==

== ENCOUNTER → 2023-04-27 | Outpatient (CLI) | payer MEDICARE | END | disposition home or self-care (01) | LOC: CARD 13:54 | PROVIDERS: ATTEND Student in an Organized Health Care Education/Training Program | DX: R55 Syncope and collapse (principal) ==

== ENCOUNTER 2023-04-29 15:04 | Emergency (ER) | payer MEDICARE ==
[~2023-04-29] VITALS: Ht 180.3 cm; Wt 136.1 kg
== END 2023-04-29 18:49 | disposition home or self-care (01) ==
LOC: ED 15:04
DX: B02.29 Other postherpetic nervous system involvement (principal); J45.909 Unspecified asthma, uncomplicated; J44.9 Chronic obstructive pulmonary disease, unspecified; F32.A Depression, unspecified; I10 Essential (primary) hypertension; Z98.890 Other specified postprocedural states

== ENCOUNTER → 2023-08-28 | Outpatient (CLI) | payer OTHER | END | disposition home or self-care (01) | LOC: RESCLI 00:06 | PROVIDERS: ATTEND Internal Medicine | DX: T14.8XXA Other injury of unspecified body region, initial encounter (principal); G25.2 Other specified forms of tremor; N40.0 Benign prostatic hyperplasia without lower urinary tract symptoms; J44.9 Chronic obstructive pulmonary disease, unspecified; M54.9 Dorsalgia, unspecified; K21.9 Gastro-esophageal reflux disease without esophagitis; E55.9 Vitamin D deficiency, unspecified; G95.19 Other vascular myelopathies; Z82.49 Family history of ischemic heart disease and other diseases of the circulatory system; Z87.81 Personal history of (healed) traumatic fracture; F10.90 Alcohol use, unspecified, uncomplicated; Z98.890 Other specified postprocedural states; Z79.899 Other long term (current) drug therapy; X58.XXXA Exposure to other specified factors, initial encounter; Y93.89 Activity, other specified; Y92.89 Other specified places as the place of occurrence of the external cause; Y99.8 Other external cause status ==